=== PATIENT | female | born 1985 | race Caucasian/White ===

== ENCOUNTER 2024-09-05 06:25 | Day surgery (SDC) | payer OTHER, SELFPAY ==
[2024-09-05] VITALS (9 sets, daily range): BP systolic 100–143; BP diastolic 62–95; BMI 22.3
[2024-09-05] MEDS: NORMOSOL-R/PLASMALYTE-A 1000 IV (12:37)
[2024-09-05] MEDS: VANCOCIN 200 IV (13:15)
== END 2024-09-05 17:07 | disposition home or self-care (01) ==
LOC: SDS 06:25
PROVIDERS: ATTENDING PHYSICIAN Surgery
DX: N20.0 Calculus of kidney (principal); Z87.440 Personal history of urinary (tract) infections
CPT/HCPCS: 52356; 74018; 76000; A4300; C1758; C1769; C1894; C2617

== ENCOUNTER 2024-09-16 06:24 | Day surgery (SDC) | payer OTHER, SELFPAY ==
[2024-09-16] VITALS (7 sets, daily range): BP systolic 115–129; BP diastolic 67–83; BMI 21.6
[2024-09-21 12:49] LABS: Stone Analysis Mass 9 mg
== END 2024-09-16 15:52 | disposition home or self-care (01) ==
LOC: SDS 06:24
PROVIDERS: ATTENDING PHYSICIAN Surgery
DX: N20.2 Calculus of kidney with calculus of ureter (principal); Z87.440 Personal history of urinary (tract) infections
CPT/HCPCS: 52356; 74018; 76000; 82365; C1769; C1894; C2617